=== PATIENT | female | born 1955 | race African-American/Black ===

== ENCOUNTER 2024-04-05 13:55 | Emergency (ER) | payer MEDICARE, MEDICAID ==
[~2024-04-05] VITALS: Ht 162.6 cm; Wt 77.0 kg
[2024-04-05 13:57] VITALS: O2SAT 98
[2024-04-05 14:09] VITALS: BP 157/75; PULSE 82; RESP 16; TEMP 98.6; O2SAT 100
[2024-04-05] MEDS: ACETAMINOPHEN 325MG TABLET PO ONE (18:13)
[2024-04-05] MEDS: KETOROLAC 30MG/ML VIAL IM ONE (18:14)
[2024-04-05] MEDS ORDERED: NAPR-1129 MT (21:08)
== END 2024-04-05 21:34 | disposition home or self-care (01) ==
LOC: ER 13:55
DX: M79.662 Pain in left lower leg (principal)
CPT/HCPCS: 99285; 93971; 73502; 73564; 96372; J1885